=== PATIENT | male | born 1975 | race Caucasian/White ===

== ENCOUNTER 2017-07-07 07:46 | Day surgery (SDC) | payer BC ==
[~2017-07-07] VITALS: Ht 172.7 cm; Wt 94.1 kg
[~2017-07-07 07:46] MED LIST: ESOM20 PO
[2017-07-07] MEDS ORDERED: VARE1 (08:22)
[2017-07-07] MEDS ORDERED: FAMO20 (08:22)
== END 2017-07-07 10:38 | disposition home or self-care (01) ==
LOC: ORSCSDS 07:46
PROVIDERS: Internal Medicine Gastroenterology
PROC: 0DBH8ZX Excision of Cecum, Via Natural or Artificial Opening Endoscopic, Diagnostic (ICD-10-PCS; principal; 2017-07-07 09:15)
PROC: 0DBK8ZX Excision of Ascending Colon, Via Natural or Artificial Opening Endoscopic, Diagnostic (ICD-10-PCS; principal; 2017-07-07 09:15)
PROC: 0DB58ZX Excision of Esophagus, Via Natural or Artificial Opening Endoscopic, Diagnostic (ICD-10-PCS; 2017-07-07 09:15)
DX: K21.9 Gastro-esophageal reflux disease without esophagitis (principal); D12.2 Benign neoplasm of ascending colon; D12.0 Benign neoplasm of cecum; K64.8 Other hemorrhoids; E78.5 Hyperlipidemia, unspecified; F41.9 Anxiety disorder, unspecified; J45.909 Unspecified asthma, uncomplicated; K20.9 Esophagitis, unspecified; K57.30 Diverticulosis of large intestine without perforation or abscess without bleeding; F17.210 Nicotine dependence, cigarettes, uncomplicated; Z79.899 Other long term (current) drug therapy
CPT/HCPCS: 88305; J7120

== ENCOUNTER 2017-10-31 14:18 | Emergency (ER) | payer OTHER, BC ==
[~2017-10-31] VITALS: Ht 172.7 cm; Wt 95.2 kg
[~2017-10-31 14:18] MED LIST changes: +FAMO20; +VARE1
[2017-10-31] MEDS ORDERED: Keflex500 MG PO (17:33)
[2017-10-31] MEDS ORDERED: Percocet 5-3251 EACH PO (17:33)
== END 2017-10-31 17:49 | disposition home or self-care (01) ==
LOC: ER 14:18
DX: S67.195A Crushing injury of left ring finger, initial encounter (principal); S62.635A Displaced fracture of distal phalanx of left ring finger, initial encounter for closed fracture; S61.315A Laceration without foreign body of left ring finger with damage to nail, initial encounter; Z23 Encounter for immunization; K21.0 Gastro-esophageal reflux disease with esophagitis; F17.200 Nicotine dependence, unspecified, uncomplicated; Z91.013 Allergy to seafood; Z79.899 Other long term (current) drug therapy; W23.0XXA Caught, crushed, jammed, or pinched between moving objects, initial encounter
CPT/HCPCS: 73130; 90714; J0690

== ENCOUNTER 2023-03-16 01:43 | Emergency (ER) | payer BC ==
[~2023-03-16] VITALS: Ht 172.7 cm; Wt 90.7 kg
[~2023-03-16 01:43] MED LIST changes: +Keflex500 MG PO; +Percocet 5-3251 EACH PO
[2023-03-16 02:02] VITALS: BP 147/105
== END 2023-03-16 05:24 | disposition home or self-care (01) ==
LOC: ER 01:43
DX: K08.89 Other specified disorders of teeth and supporting structures (principal); Z91.013 Allergy to seafood; Z79.899 Other long term (current) drug therapy; F17.200 Nicotine dependence, unspecified, uncomplicated
CPT/HCPCS: 64400; 99282-25; A9270

== ENCOUNTER 2023-07-17 07:31 | Day surgery (SDC) | payer BC ==
[~2023-07-17] VITALS: Ht 170.2 cm; Wt 94.9 kg
[2023-07-17] VITALS (10 sets, daily range): BP systolic 115–145; BP diastolic 75–109
[~2023-07-17 07:31] MED LIST changes: +AMLO5 PO; +IBUP600 PO; +Lactated Ringer's 1,000 ML IV SCH; +OMEP20ER PO; +propofoL 20 ML IV ONE
[2023-07-17] MEDS ORDERED: Midazolam HCl 1MG / ML 2ML Vial ONE (08:54)
--- NOTE | 2023-07-17 08:56 | NUR ---
07/17/23 0856 Rich Mohan HISTORY, CHART, MEDICATIONS AND ALLERGIES REVIEWED BEFORE START OF PROCEDURE. PATIENT CONFIRMS NPO STATUS AND AGREES WITH SCHEDULED PROCEDURE. 3-LEAD EKG REVIEWED WITH PHYSICIAN PRIOR TO START OF PROCEDURE. MONITOR INTACT WITH CONTINUOUS PULSE OXIMETRY,CAPNOGRAPHY, 3-LEAD EKG, INTERMITTENT BP. SUPPLEMENTAL O2 TO BE TITRATED THROUGHOUT PROCEDURE TO MAINTAIN O2 SATURATION ABOVE 90%. PATIENT DETERMINED TO BE ASA APPROPRIATE FOR PROPOFOL SEDATION PRIOR TO START OF PROCEDURE BY DR. MAYORGA.
--- NOTE | 2023-07-17 09:04 | NUR ---
0820: Patient up to Ambulate independently. Gait steady. History, Chart, Medications and Allergies reviewed before start of procedure. Patient states colon prep results light yellow. Lungs clear T/O to Auscultation. Patient confirms NPO status and agrees with scheduled procedure. Pre-Op teaching done. Pt verbalizes understanding.
--- NOTE | 2023-07-17 09:10 | NUR ---
PT TO DAY SURGERY STEP DOWN FROM COLONOSCOPY. BEDSIDE REPORT RECEIVED. PT IS AWAKE, ORIENTED AND ALERT; ABLE TO MOVE SELF IN BED. PT DENIES PAIN, NO COMPLAINTS.
--- NOTE | 2023-07-17 09:19 | NUR ---
TOLERATING PO FLUIDS WELL. Discharge instructions reviewed with patient. Patient verbalizes understanding. Copy given to patient to take home. Patient States Post-Procedure ride home has been arranged.
--- NOTE | 2023-07-17 09:30 | NUR ---
Patient up to Ambulate independently. Gait steady.
--- NOTE | 2023-07-17 09:31 | NUR ---
Discharged via wheelchair to private car for ride home.
== END 2023-07-17 09:32 | disposition home or self-care (01) ==
LOC: ORSCMMR 07:31 → ORD 08:30 → ORSCMMR 09:32
PROVIDERS: Internal Medicine Gastroenterology
PROC: 0DJD8ZZ Inspection of Lower Intestinal Tract, Via Natural or Artificial Opening Endoscopic (ICD-10-PCS; principal; 2023-07-17 08:30)
DX: Z12.11 Encounter for screening for malignant neoplasm of colon (principal); Z86.010 Personal history of colon polyps; Z80.0 Family history of malignant neoplasm of digestive organs; I10 Essential (primary) hypertension; K21.9 Gastro-esophageal reflux disease without esophagitis; Z79.899 Other long term (current) drug therapy
CPT/HCPCS: J2250; J2704; J7120